=== PATIENT | female | born 1990 | race Caucasian/White ===

== ENCOUNTER 2021-10-19 10:15 | Emergency (ER) | payer OTHER ==
[~2021-10-19] VITALS: Ht 172.7 cm; Wt 56.7 kg
[~2021-10-19 10:15] MED LIST: ACETAMINOPHEN325 M1 PO; BIRTH CONTROL; HYDROCODON-ACE1 EAC7 PO; IBUPROFEN 800800 M1 PO; KEFLEX500 MG PO; PRENATE PLUS T1 EACH; TYLENOL EX-STR500 M2 PO; ZOFRAN 4 MG ORAL4 M1 DIS; ZOFRAN4 MG PO
[2021-10-19 12:43] LABS: HEMATOCRIT 40.6 % (37.0-47.0); MCH 28.4 pg (26.0-34.0); MCHC 34.5 g/dL (28.0-37.0); MCV 82.2 fL (80.0-100.0); MPV 8.4 fl. (7.2-11.1); NUCLEATED RBCS 0 /100WBC; PLATELET COUNT* 118 thou/uL (150-400); RBC 4.94 mil/uL (4.20-5.00); RDW-CV 12.8 % (10.5-14.5)
[2021-10-19 12:50] LABS: CALCIUM 8.7 mg/dL (8.5-10.1); CREATININE 0.7 mg/dL (0.6-1.3); POTASSIUM 3.6 mmol/L (3.5-5.1)
[2021-10-19 12:54] LABS: ALBUMIN 4.1 g/dL (3.4-5.0); TOTAL BILIRUBIN 0.8 mg/dL (<0.1-1.0); TOTAL PROTEIN 7.4 g/dL (6.4-8.2)
[2021-10-19 13:12] LABS: ABSOLUTE LYMPHOCYTES 0.4 thou/uL (0.8-5.3); ABSOLUTE MONOCYTES 0.1 thou/uL (0.0-1.2); ABSOLUTE NEUTROPHILS 8.6 thou/uL (1.6-8.1)
[2021-10-19 13:14] LABS: PLATELET ESTIMATE DECREASED
[2021-10-19] MEDS ORDERED: ONDANSETRON ODT4 MG PO (14:41)
[2021-10-19 15:41] LABS: URINE BILIRUBIN NEGATIVE (Negative); URINE BLOOD NEGATIVE (Negative); URINE CLARITY CLEAR; URINE COLOR YELLOW; URINE GLUCOSE-RANDOM NEGATIVE (Negative); URINE KETONES 1+ (Negative); URINE LEUKOCYTES-REFLEX NEGATIVE (Negative); URINE NITRITE-REFLEX NEGATIVE (Negative); URINE PROTEIN NEGATIVE (Negative); URINE SPECIFIC GRAVITY 1.015 (1.005-1.030); URINE UROBILINOGEN 0.2 E.U./dl (0.2-1.0)
[2021-10-19 15:47] LABS: AMP/METHAMP Negative (Negative); BARBITURATES Negative (Negative); BENZODIAZEPINES Negative (Negative); COCAINE Negative (Negative); METHADONE Negative (Negative); OPIATES Negative (Negative); PCP Negative (Negative); THC POSITIVE (Negative)
[2021-10-19 16:00] VITALS: BP 120/72
== END 2021-10-19 16:00 | disposition home or self-care (01) ==
LOC: M.ERS 10:15
PROVIDERS: Physician Assistant
DX: G43.909 Migraine, unspecified, not intractable, without status migrainosus (principal); Z88.0 Allergy status to penicillin